=== PATIENT | male | born 1980 | race Caucasian/White ===

== ENCOUNTER 2020-11-30 10:13 | Emergency (ER) | payer BC, SELFPAY ==
--- NOTE | ~2020-11-30 | CT_ITS ---
EXAMINATION: CT abdomen pelvis w con DATE: 11/30/2020 11:09 INDICATION: Left-sided abdominal pain with blood in stools. TECHNIQUE: Computed tomography (CT) of the abdomen and pelvis was performed with 100 mL Omnipaque-350 intravenous contrast. Automated exposure control and iterative reconstruction technique were employe d. The dose-length product was 999.10 mGy-cm. COMPARISON: None FINDINGS: Minimal dependent atelectasis in the bilateral lower lobes. 3-4 mm left lower lobe nodule. Heart size is normal. No pericardial or pleural effusion. Liver, gallbladder, spleen, pancreas, bilateral adren al glands and kidneys are normal. Diffuse fatty infiltration of the wall of the colon, distal ileum a nd otherwise normal appendix which is likely related to body habitus. No periappendiceal inflammatory stranding to suggest acute appendicitis. Small bowel is normal. No obstruction. Bladder is normal. S mall fat-containing left inguinal hernia. No free intraperitoneal gas or fluid. No pathologically enl arged abdominal or pelvic lymphadenopathy. Mild lumbar levocurvature. IMPRESSION: 1. No acute intra-abdominal/pelvic process. 2. Likely benign 3-4 mm left lower lobe nodule. If the patient is low risk for lung cancer, no follow -up is needed. If the patient is high risk (i.e., history of smoking or asbestos or significant radia tion exposure), optional follow-up chest CT could be considered at 12 months. 3. Small fat-containing left inguinal hernia. Reviewed, dictated and finalized at location B. ESTING SUPERVISOR IMPRESSION: 1. No acute intra-abdominal/pelvic process. 2. Likely benign 3-4 mm left lower lobe nodule. If the patient is low risk for lung cancer, no follow-up is needed. If the patient is high risk (i.e., history of smoking or asbestos or significant radiation exposure), optional follow-up chest CT could be considered at 12 months. 3. Small fat-containing left inguinal hernia.
[2020-11-30 10:29] VITALS: BP 163/79; PULSE 58; RESP 18; TEMP 36.1; O2SAT 99
[2020-11-30 10:32] LABS: Basophils Percent Auto 0.5 % (0.2-1.2); Eosinophils Absolute Auto 0.2 K/mm3 (0-0.3); Eosinophils Percent Auto 2.1 % (0-4.4); Hematocrit 44.1 % (42.0-52.0); Hemoglobin 15.2 g/dL (14.0-18.0); Immature Granulocyte Absolute 0.01 K/mm3 (0.00-0.031); Immature Granulocyte Percent A 0.1 % (0-0.5); Lymphocytes Absolute Auto 1.79 K/mm3 (0.9-3.2); Lymphocytes Percent Auto 23.6 % (18.3-44.2); Mean Corpuscular HGB Conc 34.5 g/dl (32-36); Mean Platelet Volume 10.5 fl (7.4-10.4); Monocytes Absolute Auto 0.6 K/mm3 (0.1-0.6); Monocytes Percent Auto 7.8 % (2.6-8.5); Neutrophils Percent Auto 65.9 % (45.5-73.1); Platelet Count Result 196 k/mm3 (150-375); Red Blood Count 5.07 M/mm3 (4.6-6.20); Red Cell Distribution Width 13.1 % (11.5-14.5); White Blood Count 7.6 K/mm3 (4.5-10.0)
--- NOTE | 2020-11-30 10:38 | ED.GIBLEED ---
HPI - GI Bleed General Chief complaint: GI Bleed Stated complaint: abd pain, bloody stools Time Seen by Provider: 11/30/20 10:33 Source: patient Mode of arrival: ambulatory Limitations: no limitations History of Present Illness HPI Narrative: This is a 40-year-old male that presents the emergency department for left-sided abdominal pain since last night. Associated with bright red blood in his stool. Does report history of hemorrhoids. Reports painful bowel movements. Denies fever, nausea, vomiting, or diarrhea. Related Data Allergies Allergy/AdvReac Type Severity Reaction Status Date / Time No Known Allergies Allergy Verified 11/30/20 10:32 Review of Systems Review of Systems: Narrative: CONSTITUTIONAL: Denies fever GASTROINTESTINAL: Reports abdominal pain. Denies nausea, vomiting, or diarrhea. GENITOURINARY: Denies dysuria All systems reviewed & are unremarkable except as noted in HPI and below PMFSH Past Medical History Medical History (Updated 11/30/20 @ 12:59 by Claudia Mcgovern PA-C) External hemorrhoid Sleep apnea Family History Family History Mother Family history of arthritis Asthma Father Family history of diabetes mellitus in first degree relative Sibling Asthma Social History Social History Smoking status: Never smoker Second hand tobacco smoke exposure: No Exam Narrative: Exam Narrative: GENERAL: Well-appearing, well-nourished, and in no acute distress. HEAD: Normocephalic, atraumatic. EYES: EOMI. CHEST: Clear to auscultation. No respiratory distress. No wheezes rales or rhonchi HEART: Regular rate and rhythm. No murmur heard. Normal peripheral pulses. ABDOMEN: Soft, nondistended, normal active bowel sounds. Tender to palpation throughout the left side of the abdomen, without guarding EXTREMITIES: Normal range of motion. No edema. SKIN: Warm, dry, no rash. NEURO: No focal deficits. Alert and oriented x3. PSYCH: Normal mood and affect RECTAL: Several external hemorrhoids present, nonthrombosed, no active bleeding. Hemoccult negative Course Vital Signs Vital signs: Vital Signs Temperature 96.9 F L 11/30/20 10:29 Pulse Rate 58 L 11/30/20 10:29 Respiratory Rate 18 11/30/20 10:29 Blood Pressure 163/79 H 11/30/20 10:29 Pulse Oximetry 99 11/30/20 10:29 Temperature 96.9 F L 11/30/20 10:29 Pulse Rate 58 L 11/30/20 10:29 Respiratory Rate 18 11/30/20 10:29 Blood Pressure 163/79 H 11/30/20 10:29 Pulse Oximetry 99 11/30/20 10:29 MDM - GI Bleed MDM Narrative Medical decision making narrative: Patient presents the emergency department for left-sided abdominal pain, rectal bleeding. He is afebrile and nontoxic-appearing. CBC without acute findings. Metabolic panel without concerning changes. CT scan abdomen and pelvis is without acute intra-abdominal/pelvic process. Does show a likely benign 3 to 4 mm left lower lobe nodule. Patient also has a small fat-containing left inguinal hernia. Patient does have several, nonthrombosed external hemorrhoids. No active bleeding. Was instructed on care of hemorrhoids. Will be given GI for follow-up. Patient is stable and felt appropriate for the outpatient valuation. He was given warnings to return to the ER Lab Data Attestation: I reviewed the patient's lab results. Result diagrams: 11/30/20 10:26 11/30/20 10:26 Labs: Lab Results 11/30/20 11/30/20 11/30/20 Range/Units 10:26 10:26 10:26 WBC 7.6 (4.5-10.0) K/mm3 RBC 5.07 (4.6-6.20) M/mm3 Hgb 15.2 (14.0-18.0) g/dL Hct 44.1 (42.0-52.0) % MCV 87.0 (80-100) fl MCH 30.0 (26-34) pg MCHC 34.5 (32-36) g/dl RDW 13.1 (11.5-14.5) % Plt Count 196 (150-375) k/mm3 MPV 10.5 H (7.4-10.4) fl Immature Gran % (Auto) 0.1 (0-0.5) % Neut % (Auto) 65.9 (45.5-73.1) % Lymph % (Auto) 23.
[2020-11-30 10:41] LABS: Prothrombin Time 13.3 Seconds (11.1-14.7)
[2020-11-30 10:42] LABS: Partial Thromboplastin Time 28.6 SECONDS (22.3-36.8)
[2020-11-30 10:53] LABS: Alanine Aminotransferase 40 U/L (4-50); Alkaline Phosphatase 58 U/L (38-126); Anion Gap 5 mmol/L (8-16); Aspartate Amino Transferase 34 U/L (17-59); Bilirubin,Total 0.6 mg/dL (0.2-1.3); Blood Urea Nitrogen 20 mg/dL (9-20); Calcium 10.3 mg/dL (8.4-10.2); Carbon Dioxide 33 mmol/L (22-30); Chloride 102 mmol/L (98-107); Estimated CRCL calculation 124 ml/min; Estimated Glomerular Filt Rate > 60; Glucose 114 mg/dL (75-110); Potassium 4.1 mmol/L (3.4-5.0); Sodium 140 mmol/L (137-145)
[2020-11-30 13:48] VITALS: BP 132/99; PULSE 72; RESP 14
== END 2020-11-30 13:50 | disposition home or self-care (01) ==
PROVIDERS: Emergency Provider Emergency Medicine; PCP Nurse Practitioner
DX: K64.4 Residual hemorrhoidal skin tags (principal); R91.1 Solitary pulmonary nodule; K40.90 Unilateral inguinal hernia, without obstruction or gangrene, not specified as recurrent; G47.30 Sleep apnea, unspecified
CPT/HCPCS: 36415; 74177; 80053; 85025; 85610; 85730; 86850; 86900; 86901; 96365; 99284; J0131; Q9967

== ENCOUNTER → 2020-12-08 03:19 | Outpatient (CLI) | payer BC, SELFPAY ==
[2020-12-08 18:10] LABS: SARS-CoV-2 RNA PCR Negative
== END ==
PROVIDERS: PCP Nurse Practitioner; Visit Provider Surgery
DX: Z01.812 Encounter for preprocedural laboratory examination (principal); Z20.822 Contact with and (suspected) exposure to COVID-19
CPT/HCPCS: C9803; U0003; U0005

== ENCOUNTER 2020-12-11 01:43 | Day surgery (SDC) | payer BC, SELFPAY ==
[2020-12-07 13:48] VITALS: BMI 34.6
[2020-12-11] VITALS (9 sets, daily range): BP systolic 116–136; BP diastolic 62–86; PULSE 50–81; RESP 11–20; TEMP 35.9–36.6; O2SAT 76–100
--- NOTE | 2020-12-11 08:11 | WPDANESEPPF ---
Anes - Initial Pre Proc Eval Procedure: Operation Date: 12/11/20 10:30 Proposed Procedures p Robotic Assisted Laparoscopic Left Inguinal Hernia Repair With Mesh - Jen Garnica MD Date/Time: 12/11/20 08:11 Surgeon: Jen Garnica MD Pre Op Diagnosis: Left Inguinal Hernia Patient Data Age: 40 Gender: M Height: 1.83 m Weight: 115.7 kg Allergies Allergy/AdvReac Type Severity Reaction Status Date / Time No Known Allergies Allergy Verified 12/11/20 09:26 Home Medications Medication Instructions Recorded Confirmed Type lidocaine HCl-hydrocortison ac 1 applic RECTAL BID 7 Days #98 g 11/30/20 12/11/20 Rx docusate sodium 100 mg capsule 100 mg PO DAILY #30 cap 12/01/20 12/11/20 Rx ibuprofen 200 mg capsule 200 mg PO BID PRN cap 12/01/20 12/11/20 History Patient hx anesthesia problems: none Family hx anesthesia problems: none PMFSH Past Medical History Medical History (Updated 12/11/20 @ 08:11 by Troy Michael MD) External hemorrhoid History of bronchitis Obesity Sleep apnea + cpap Surgical History Surgical History H/O hand surgery surgery on finger Family History Family History Mother Family history of arthritis Asthma Father Family history of diabetes mellitus in first degree relative Sibling Asthma Social History Social History Smoking status: Never smoker Second hand tobacco smoke exposure: No Alcohol intake: current Living arrangements: with family Spiritual care concerns: No Anes - Eval Final PreProcedure Day of Procedure 12/11/20 08:11 Patient weight: obese Heart: regular rate and rhythm Lungs: clear to auscultation and normal air movement Airway: Mallampati scale class II Neurological: alert and oriented Last oral intake: >/= 8 hours ASA classification: II Emergent: no Anesthetic plan: proceed Anesthesia type and monitoring: general ETT Informed Consent: The patient's anesthetic plan and its attendant risks and benefits were discussed with the patient/family/POA. Questions were solicited and answers provided to the satisfaction of the patient/family/POA.
[2020-12-11] MEDS: LACTATED RINGERS 1,000 ML 30 ML IV CONT ×2 (09:38→11:54)
[2020-12-11] MEDS: ACETAMINOPHEN 500 MG TABLET 1000 MG PO (09:40)
[2020-12-11] MEDS: KETOROLAC 15 MG/ML VIAL (*BKC) IV PUSH (09:46)
--- NOTE | 2020-12-11 09:51 | WPDHPUPDATE1 ---
History and Physical Update Update Date/Time: 12/11/20 09:51 History and Physical has been reviewed, including an updated exam of the patient. There are NO changes in the patient's condition. Risks, benefits, and alternatives have been discussed and questions answered. Patient agrees to proceed with procedure.
[2020-12-11] MEDS: ceFAZolin 2 GM/D5W 50 ML 2 GM/50 ML BAG IVPB (10:22)
[2020-12-11] MEDS: BUPIVACAINE/EPINEPHRINE 0.5% 30 ML VIAL INFILTRATE (11:06)
--- NOTE | 2020-12-11 11:06 | SUR.OPER ---
1103 attempted to call spouse nadia,no answer.
--- NOTE | 2020-12-11 11:10 | SUR.OPER ---
talked with spouse nadia,update given.
--- NOTE | 2020-12-11 11:28 | SUR.OPER ---
1110 update given to spouse
--- NOTE | 2020-12-11 12:03 | P.OP_ITS ---
Procedure Note - Detailed Date of procedure: 12/11/20 Pre-op diagnosis: Left Inguinal Hernia Post-op diagnosis: same Procedure performed: robotic assisted left inguinal hernia repair Description of procedure: Patient was brought into the operating room and placed in the supine position. After adequate induction of general anesthesia, the patient was prepped and draped in normal sterile fashion. A time-out was then done to verify the patient's identity, as well as the procedure being performed. Began by making a 8 mm incision in the supraumbilical region, a Veress needle was then placed into the peritoneal cavity. CO2 gas was then insufflated and after adequate pneumoperitoneum was achieved, the Veress needle was removed. I then placed an 8 mm trocar through this incision. I then placed the endoscope through this trocar site and under direct visualization placed 2 further 8 mm ports in the right and left mid abdomen. The [employer] robot was then docked to the 3 trocar sites. I then scrubbed out and went to the robotic console. Upon examining the pelvis, it was noted that the patient had a left inguinal hernia. I began by making a preperitoneal flap approximately 6 cm superior to the defect. This flap was carried medially past the umbilical ligaments in laterally to the transversalis. It then began dissection of my medial compartment taking this down to the pubic tubercle. I then began the lateral dissection taking this down to the transversalis fascia. Once these compartments were achieved, I began dissection around the cord structures. It was noted at this point that the patient had a indirect hernia. Patient also had a large lipoma the cord. Using careful dissection, was able to reduce the lipoma cord as well separate the indirect hernia off the cord structures. Once this was adequately done, I went ahead and placed a 15 x 10 piece of [employer] Technician mesh into the abdominal cavity. The mesh was carefully positioned, centering the center of the mesh over the indirect defect. Once this was done, was very satisfied with our repair. I then closed the peritoneal flap with a running 2.0 V Lock suture. The abdomen was then desufflated, and all ports were removed. All incisions were then closed with the 4.0 monocryl suture. Dermabond was placed on each wound. The patient tolerated the procedure well, was extubated in the operating room postoperatively, and will now be transferred to the [facility] room in stable condition. Implants: 15 x 10 progrip mesh Anesthesia: GETA Surgeon: Jen Garnica MD Estimated blood loss (mL): 5 Drains: No Packing: No Pathology: none sent Complications: No immediate complications Condition: stable Disposition: PACU Findings: indirect LIH
[2020-12-11] MEDS: diphenhydrAMINE HCl INJ 50 MG/ML VIAL 25 MG IV PUSH (12:16)
== END 2020-12-11 14:12 | disposition home or self-care (01) ==
PROVIDERS: PCP Nurse Practitioner; Visit Provider Surgery
PROC: 8E0Y4CZ Robotic Assisted Procedure of Lower Extremity, Percutaneous Endoscopic Approach (ICD-10-PCS; CPT 49650; principal; 2020-12-11 10:30)
DX: K40.90 Unilateral inguinal hernia, without obstruction or gangrene, not specified as recurrent (principal); G47.33 Obstructive sleep apnea (adult) (pediatric); E66.9 Obesity, unspecified; Z68.35 Body mass index [BMI] 35.0-35.9, adult
CPT/HCPCS: 49650; S2900; 36415; 86850; 86900; 86901; A9270; C1781; J0690; J1100; J1200; J1885; J2250; J2405; J2704; J2710; J3010; J7120

== ENCOUNTER → 2021-01-06 01:01 | Outpatient (CLI) | payer BC, SELFPAY ==
[2021-01-06 19:48] LABS: SARS-CoV-2 RNA PCR Negative
== END ==
PROVIDERS: PCP Nurse Practitioner; Visit Provider Surgery
DX: Z01.812 Encounter for preprocedural laboratory examination (principal); Z20.822 Contact with and (suspected) exposure to COVID-19
CPT/HCPCS: C9803; U0003; U0005

== ENCOUNTER 2021-01-10 02:07 | Day surgery (SDC) | payer BC, SELFPAY ==
[2021-01-03 18:20] VITALS: BMI 32.8
[2021-01-10] VITALS (7 sets, daily range): BP systolic 112–134; BP diastolic 68–81; PULSE 50–62; RESP 10–20; TEMP 36.1–36.5; O2SAT 94–99
[2021-01-10] MEDS: LACTATED RINGERS 1,000 ML 30 ML IV CONT (10:45)
--- NOTE | 2021-01-10 10:50 | WPDHPUPDATE1 ---
History and Physical Update Update Date/Time: 01/10/21 10:50 History and Physical has been reviewed, including an updated exam of the patient. There are NO changes in the patient's condition. Risks, benefits, and alternatives have been discussed and questions answered. Patient agrees to proceed with procedure.
[2021-01-10] MEDS: ACETAMINOPHEN 500 MG TABLET 1000 MG PO (10:57)
[2021-01-10] MEDS: KETOROLAC 15 MG/ML VIAL (*BKC) IV PUSH (10:57)
--- NOTE | 2021-01-10 11:05 | WPDANESEPPF ---
Anes - Initial Pre Proc Eval Procedure: Operation Date: 01/10/21 12:00 Proposed Procedures p Rectal Exam Under Anesthesia, Hemorrhoidectomy - Jen Garnica MD Date/Time: 01/10/21 11:05 Surgeon: Jen Garnica MD Pre Op Diagnosis: hemorrhoids Patient Data Age: 40 Gender: M Height: 6 ft Weight: 108.4 kg Last Vital Signs Temp 36.5 C 01/10/21 10:08 Pulse 57 L 01/10/21 10:08 Resp 20 01/10/21 10:08 BP 121/78 01/10/21 10:08 Pulse Ox 99 01/10/21 10:08 Allergies Allergy/AdvReac Type Severity Reaction Status Date / Time No Known Allergies Allergy Verified 01/10/21 10:05 Home Medications Medication Instructions Recorded Confirmed Type lidocaine HCl-hydrocortison ac 1 applic RECTAL BID 7 Days #98 g 11/30/20 01/10/21 Rx docusate sodium [Colace] 100 mg PO BID #20 cap 12/11/20 01/10/21 Rx Patient hx anesthesia problems: none Family hx anesthesia problems: none PMFSH Past Medical History Medical History External hemorrhoid History of bronchitis Obesity Sleep apnea + cpap Surgical History Surgical History H/O hand surgery surgery on finger H/O inguinal hernia repair 12/11/20 robotic assisted left inguinal hernia repair Family History Family History Mother Family history of arthritis Asthma Father Family history of diabetes mellitus in first degree relative Sibling Asthma Social History Social History Smoking status: Never smoker Second hand tobacco smoke exposure: No Alcohol intake: current Substance use: never Living arrangements: with family Gender identity (if verbalized by the patient): Male Sexual Orientation (if Verbalized by the Patient): Straight or Heterosexual Spiritual care concerns: No Anes - Eval Final PreProcedure Day of Procedure 01/10/21 11:05 Patient weight: obese Heart: regular rate and rhythm Lungs: clear to auscultation Airway: Mallampati scale class II Neurological: alert and oriented Last oral intake: >/= 8 hours ASA classification: II Emergent: no Anesthetic plan: proceed Anesthesia type and monitoring: general ETT and standard monitoring Informed Consent: The patient's anesthetic plan and its attendant risks and benefits were discussed with the patient/family/POA. Questions were solicited and answers provided to the satisfaction of the patient/family/POA.
[2021-01-10] MEDS: ceFAZolin 2 GM/D5W 50 ML 2 GM/50 ML BAG IVPB (12:09)
[2021-01-10] MEDS: LIDOCAINE HCL 2% GEL UROJET 10 ML PKG MUCOUS MEM (12:42)
--- NOTE | 2021-01-10 13:01 | PM.PROC ---
Procedure Note - Detailed Date of procedure: 01/10/21 Pre-op diagnosis: hemorrhoids Post-op diagnosis: same Procedure performed: Two column internal hemorrhoidectomy, right anterior and left lateral columns, external hemorrhoidectomy Description of procedure: The patient was taken the operating room placed in the modified lithotomy position. After adequate induction of general anesthesia, the patient prepped and draped in the normal sterile fashion. A time-out was then done to verify the patient's identity, as well as the procedure being performed. A bilateral pudendal block was then done. I began by doing a digital rectal exam. Patient was noted to some external hemorrhoids on exam. I then used the anoscope to further examine anal canal. At this point, it was noted that the patient had hemorrhoids in all 3 columns, most severe in the right anterior and left lateral. At this point, I performed a 2 column internal hemorrhoidectomy. This was done using the LigaSure device. I first excised the right anterior column and this was followed by the left lateral column. Hemostasis was noted in both areas and intact in anoderm was noted. I then excised multiple external hemorrhoids again using the LigaSure device. These were quite large and associated with large skin tags. Hemostasis was noted at these areas. At this point, I placed a piece of Gelfoam coated with lidocaine jelly into the rectal vault. Sterile dressing was then placed. The patient tolerated the procedure and was extubated in the operating room postop. He will be transferred recovery room in stable condition. Implants: none Anesthesia: GETA and local Surgeon: Jen Garnica MD Estimated blood loss (mL): 20 Drains: No Packing: No Pathology: yes Complications: No immediate complications Condition: stable Disposition: PACU Findings: 2 column internal hemorrhoidectomy excision of external hemorrhoids
== END 2021-01-10 14:20 | disposition home or self-care (01) ==
PROVIDERS: PCP Nurse Practitioner; Visit Provider Surgery
PROC: (CPT 46260; principal; 2021-01-10 12:00)
DX: K64.8 Other hemorrhoids (principal); K64.4 Residual hemorrhoidal skin tags; G47.33 Obstructive sleep apnea (adult) (pediatric); E66.9 Obesity, unspecified; Z68.32 Body mass index [BMI] 32.0-32.9, adult
CPT/HCPCS: 46260; 88304; A9270; J0690; J1100; J1885; J2250; J2405; J2704; J3010; J7120

== ENCOUNTER → 2021-03-26 03:32 | Outpatient (CLI) | payer BC, SELFPAY ==
[2021-03-27 15:26] LABS: SARS-CoV-2 RNA PCR Negative (Negative)
== END ==
PROVIDERS: Internal Medicine Critical Care Medicine; PCP Nurse Practitioner; Visit Provider Internal Medicine Gastroenterology
DX: Z01.812 Encounter for preprocedural laboratory examination (principal); Z20.822 Contact with and (suspected) exposure to COVID-19
CPT/HCPCS: C9803; U0003; U0005

== ENCOUNTER 2021-03-28 02:25 | Day surgery (SDC) | payer BC, SELFPAY ==
[2021-03-19 13:12] VITALS: BMI 34.0
[2021-03-28 08:59] VITALS: BP 130/79; PULSE 68; RESP 20; TEMP 36.3; O2SAT 98; BMI 33.5
[2021-03-28] MEDS: LACTATED RINGERS 1,000 ML 150 ML IV CONT (09:16)
--- NOTE | 2021-03-28 09:21 | WPDANESEPPF ---
Anes - Initial Pre Proc Eval Procedure: Operation Date: 03/28/21 09:45 Proposed Procedures p Colonoscopy - Antony Jackson MD Date/Time: 03/28/21 09:21 Surgeon: Antony Jackson MD Pre Op Diagnosis: hematochezia, abdominal pain Patient Data Age: 40 Gender: M Height: 6 ft Weight: 112 kg Last Vital Signs Temp 97.4 F L 03/28/21 08:59 Pulse 68 03/28/21 08:59 Resp 20 03/28/21 08:59 BP 130/79 03/28/21 08:59 Pulse Ox 98 03/28/21 08:59 Allergies Allergy/AdvReac Type Severity Reaction Status Date / Time No Known Allergies Allergy Verified 03/28/21 08:58 Home Medications Medication Instructions Recorded Confirmed Type No Home Medications 03/19/21 03/19/21 History Patient hx anesthesia problems: none Family hx anesthesia problems: none PMFSH Past Medical History Medical History (Updated 03/16/21 @ 16:39 by Lina Fountain NP) External hemorrhoid History of bronchitis Inguinal hernia without obstruction or gangrene Obesity Sleep apnea + cpap Surgical History Surgical History H/O hand surgery surgery on finger H/O inguinal hernia repair 12/11/20 robotic assisted left inguinal hernia repair History of hemorrhoidectomy 01/10/21 Family History Family History Mother Family history of arthritis Asthma Father Family history of diabetes mellitus in first degree relative Sibling Asthma Social History Social History Smoking status: Never smoker Second hand tobacco smoke exposure: No Alcohol intake: never Substance use: never Substance use type: does not use Living arrangements: with family Gender identity (if verbalized by the patient): Male Spiritual care concerns: No Anes - Eval Final PreProcedure Day of Procedure 03/28/21 09:21 Patient weight: obese Heart: regular rate and rhythm Lungs: clear to auscultation Airway: Mallampati scale class II Last oral intake: >/= 8 hours ASA classification: II Emergent: no Anesthetic plan: proceed Anesthesia type and monitoring: general GIVS and standard monitoring Informed Consent: The patient's anesthetic plan and its attendant risks and benefits were discussed with the patient/family/POA. Questions were solicited and answers provided to the satisfaction of the patient/family/POA.
--- NOTE | 2021-03-28 09:25 | PM.HPGS ---
History of Present Illness History of Present Illness Consent: Risks, benefits, and alternatives have been discussed and questions answered. Patient agrees to proceed with procedure. Chief complaint: hematochezia, abdominal pain Narrative: Martir Jha is a 40 year old male with hematochezia, had hemorrhoid surgery 2 months ago and improved but never had a colonoscopy Review of Systems Constitutional: Constitutional: Denies headache(s) and Denies weakness Eyes: Eyes: Denies blurry vision ENT: Reports Normal hearing present, Denies headache(s) and Denies neck pain Cardiovascular: Cardiovascular: Denies chest pain and Denies dyspnea Respiratory: Respiratory: Denies dyspnea Gastrointestinal: Gastrointestinal: Reports no additional gastrointestinal complaints Genitourinary: Genitourinary: Denies dysuria Musculoskeletal: Musculoskeletal: Denies neck pain Integumentary/Breasts: Skin/Breast: Denies dry skin Neurologic: Reports Normal hearing present, Denies headache(s) and Denies weakness Psychiatric: Psychiatric: Denies anxiety Endocrine: Endocrine: Denies change in body appearance Hematologic/Lymphatic: Hematologic/Lymphatic: Denies easy bleeding Allergic/Immunologic: Allergic/Immunologic: Denies urticaria PMFSH Past Medical History Medical History (Updated 03/16/21 @ 16:39 by Lina Fountain NP) External hemorrhoid History of bronchitis Inguinal hernia without obstruction or gangrene Obesity Sleep apnea + cpap Surgical History Surgical History H/O hand surgery surgery on finger H/O inguinal hernia repair 12/11/20 robotic assisted left inguinal hernia repair History of hemorrhoidectomy 01/10/21 Family History Family History Mother Family history of arthritis Asthma Father Family history of diabetes mellitus in first degree relative Sibling Asthma Social History Social History Smoking status: Never smoker Second hand tobacco smoke exposure: No Alcohol intake: never Substance use: never Substance use type: does not use Living arrangements: with family Gender identity (if verbalized by the patient): Male Spiritual care concerns: No Meds Home Medications and Allergies Home Medications Medication Instructions Recorded Confirmed Type No Home Medications 03/19/21 03/19/21 History Allergies Allergy/AdvReac Type Severity Reaction Status Date / Time No Known Allergies Allergy Verified 03/28/21 08:58 Vital Signs Vital Signs - 24 hr 03/28/21 08:59 Temperature 97.4 F L Pulse Rate 68 Respiratory Rate 20 Blood Pressure 130/79 Pulse Oximetry 98 Exam Const: General: comfortable and no acute distress HENMT: General nose exam: Normal nares present Eyes: General: appearance normal, both eyes and all related structures Neck: Neck: no JVD Resp: Auscultation: clear to auscultation bilaterally Cardio: Rate: regular rate Rhythm: regular rhythm GI: Inspection: non-distended GI Palp: Yes Soft to palpation Skin: General skin exam: normal color Neuro: General: gait normal Speech: normal speech Extrem: General: normal to inspection Psych: Mental Status: mental status grossly normal Assessment and Plan Assessment and plan (1) Hematochezia: Code(s): K92.1 - Melena Status: Resolved Assessment and Plan: colonoscopy, most likely perianal source but need to rule out other causes (2) Hemorrhoids: Code(s): K64.9 - Unspecified hemorrhoids Status: Acute
[2021-03-28 09:43] VITALS: BP 109/64; PULSE 70; RESP 16; O2SAT 95
[2021-03-28 09:53] VITALS: BP 109/64; PULSE 60; RESP 16; O2SAT 94
[2021-03-28 10:03] VITALS: BP 112/80; PULSE 67; RESP 22; O2SAT 96
== END 2021-03-28 10:30 | disposition home or self-care (01) ==
PROVIDERS: PCP Nurse Practitioner; Visit Provider Internal Medicine Gastroenterology
PROC: 0DJD8ZZ Inspection of Lower Intestinal Tract, Via Natural or Artificial Opening Endoscopic (ICD-10-PCS; CPT 45378; principal; 2021-03-28 09:45)
DX: K92.1 Melena (principal); K40.90 Unilateral inguinal hernia, without obstruction or gangrene, not specified as recurrent; K64.8 Other hemorrhoids; E66.9 Obesity, unspecified; G47.30 Sleep apnea, unspecified
CPT/HCPCS: 45378; J2001; J2704; J7120

== ENCOUNTER 2021-12-04 08:54 | Outpatient (CLI) | payer BC, SELFPAY ==
--- NOTE | ~2021-12-04 | CT_ITS ---
EXAMINATION:CT diagnostic chest wo con DATE: 12/04/2021 09:15 INDICATION: Solitary pulmonary nodule. TECHNIQUE: Computed tomography (CT) of the chest was performed without intravenous contrast. Automate d exposure control and iterative reconstruction technique were employed. The dose-length product (DLP ) was 253.34 mGy-cm. COMPARISON: CT abdomen and pelvis 11/30/2020 FINDINGS: The lungs demonstrate mild atelectasis. There is a stable 4 mm nodule in left lower lobe. N o pleural effusion. The heart size is normal. No pericardial effusion. There is bilateral gynecomasti a. There is mild thoracic spondylosis. IMPRESSION: 1. Stable 4 mm left lower lobe pulmonary nodule, likely benign. Reviewed, dictated and finalized at location A. H BLEACHING RANGE TENDER
== END 2021-12-04 08:55 | disposition home or self-care (01) ==
PROVIDERS: PCP Nurse Practitioner; Visit Provider Nurse Practitioner
DX: R91.1 Solitary pulmonary nodule (principal)
CPT/HCPCS: 71250

== ENCOUNTER 2022-12-24 19:54 | Outpatient (NON) | payer BC, SELFPAY | END 2022-12-24 19:55 | disposition home or self-care (01) | LOC: ANHLAB 19:56 | PROVIDERS: PCP Family Medicine; Visit Provider Nurse Practitioner | DX: J02.9 Acute pharyngitis, unspecified (principal) | CPT/HCPCS: 87070; 87077 ==

== ENCOUNTER 2023-01-16 14:20 | Outpatient (CLI) | payer BC, SELFPAY ==
[2023-01-16 20:52] LABS: Kit Draw Collected
== END 2023-01-16 14:21 | disposition home or self-care (01) ==
LOC: ANHGOSHLAB 14:22
PROVIDERS: PCP Family Medicine; Visit Provider Nurse Practitioner
DX: E78.5 Hyperlipidemia, unspecified (principal); Z12.5 Encounter for screening for malignant neoplasm of prostate
CPT/HCPCS: 36415

== ENCOUNTER → 2023-02-25 12:44 | Outpatient (CLI) | payer BC, SELFPAY ==
--- NOTE | ~2023-02-25 | XR_ITS ---
EXAMINATION: XR chest 2V Exam Date/Time: 02/25/2023 12:48 CDT HISTORY: follow up for Solitary pulmonary nodule left side Comparison: 09/04/2018; CT chest 12/04/2021. RESULT: Lines, tubes, and devices: None. Lungs and pleura: Clear. Cardiomediastinal silhouette: Stable. Other: No acute osseous or upper abdominal finding. IMPRESSION: No acute cardiopulmonary process. The nodule detected by prior CT is not visible radiographically, bu t was described as likely benign previously as it demonstrated stability over one year. Based on Flei schner recommendations no additional imaging is recommended. Reviewed, dictated and finalized at location K. IMPRESSION: No acute cardiopulmonary process. The nodule detected by prior CT is not visibl e radiographically, but was described as likely benign previously as it demonst rated stability over one year. Based on Fleischner recommendations no additiona l imaging is recommended.
== END ==
PROVIDERS: PCP Nurse Practitioner; Visit Provider Nurse Practitioner
DX: R91.1 Solitary pulmonary nodule (principal)
CPT/HCPCS: 71046

== ENCOUNTER 2023-08-11 11:42 | Outpatient (CLI) | payer BC, SELFPAY ==
[2023-08-11 12:39] LABS: Strep Group A RT-PCR NOT DETECTED (Negative)
== END 2023-08-11 11:43 | disposition home or self-care (01) ==
LOC: ANHLAB 11:43
PROVIDERS: PCP Family Medicine; Visit Provider Family Medicine
DX: J02.9 Acute pharyngitis, unspecified (principal)
CPT/HCPCS: 87651

== ENCOUNTER 2023-12-10 09:13 | Outpatient (CLI) | payer BC, SELFPAY ==
--- NOTE | ~2023-12-10 | CT_ITS ---
CT Scan of the Chest without Contrast: Clinical Indication: Chest pain Technique: Contiguous sections were acquired throughout the chest without intravenous contrast. Dose reduction technique was used on this scan by utilizing automated exposure control and iterative recon struction technique. The dose-length product (DLP) was 641.05 mGy-cm. COMPARISON: 12/04/2021 Findings: There is no evidence of any significant mediastinal, hilar or axillary lymphadenopathy. The mediastin al soft tissues appear normal. There is no evidence of pleural or pericardial effusion. 3 mm right lower lobe pulmonary nodule noted. 4 mm left lower lobe pulmonary nodule noted. These nodu les are stable from prior exam. Images through the upper abdomen reveal no abnormalities. Impression: No acute abnormality seen. Stable subcentimeter pulmonary nodules, as noted above. Reviewed, dictated and finalized at [facility]. MILL SUPERVISOR Impression: No acute abnormality seen. Stable subcentimeter pulmonary nodules, as noted above.
== END 2023-12-10 09:14 ==
LOC: GOSHIMG 09:14
PROVIDERS: PCP Family Medicine; Visit Provider Family Medicine
DX: R07.89 Other chest pain (principal); S29.011A Strain of muscle and tendon of front wall of thorax, initial encounter; R91.1 Solitary pulmonary nodule; X58.XXXA Exposure to other specified factors, initial encounter
CPT/HCPCS: 71250

== ENCOUNTER 2025-03-17 10:20 | Outpatient (CLI) | payer BC, SELFPAY ==
--- OUTSIDE RECORDS SUMMARY | 2025-03-17 10:32 | XMS_ITS | Clinical Summary ---
Author Organization [facility] Address [address] [place] [address] Care Team Providers Care Mold Press Operator Name Role Phone Unavailable Primary Care Provider Unavailabl e Source Comments [facility],non-owned Affiliates and Associated Physician Practices is amultiple site organization consisting of ambulatory clinics and hospital sitesin [place], [place], [place] and [place]. This disclosure is being madepursuant to the Care Everywhere program and may not contain all information available regarding this patient. Last updated 18.[facility] Immunizations Immunization Administration Dates Next Due INFLUENZA VACCINE, QUADR. (F LUZONE; FLULAVAL; FLUARIX; AFLURIA QUADRIVALENT; 6MO+), 0.5 ML (IIV4) 08/10/2020 Social History Tobacco Use Types Packs/Day Years Used Date Smoking Tobacco: Never Assessed Sex and Gender Information Value Date Recorded Sex Assigned at Not on file Legal Sex Male 11:44 AM CDT Gender Identity Not on file Sexual Orientation Not on file Last Filed Vital Signs Vital Sign Reading Time Taken Comments Blood Pressure - - Pulse - - Temperature 36.4 C (97.5 F) 08/10/2020 9:31 AM CDT Respiratory Rate - - Oxygen Saturation - - Inhaled Oxygen Concentration - - Weight - - Height - - Body Mass Index - - Plan of Treatment Health Maintenance Due Date Last Done Comments LIPID TESTING 1980 HIV SCREENING 1995 HEPATITIS C SCREENING 08/21/1998 DTAP/TDAP/TD VACCINES (1 - Tdap) 1999 HEPATITIS B VACCINE (1 of 3 - 19+ 3-dose series) 1999 COVID-19 VACCINE (2023-2 5 season) 2024 DEPRESSION SCREENING 11/03/2024 INFLUENZA VACCINE (Season Ended) 2025 08/10/20 20 ZOSTER VACCINE (1 of 2) 2030 HIB VACCINE Aged Out No longer eligi ble based on patient's age to complete this topic HPV VACCINE Aged Out No longer eligi ble based on patient's age to complete this topic MENINGOCOCCAL (Group B) VACC INE SHARED DECISION-MAKING Aged Out No longer eligibl e based on patient's age to complete this topic MENINGOCOCCAL GROUPS A/C/Y/W VACCINE Aged Out No longer eligible b ased on patient's age to complete this topic PNEUMOCOCCAL VACCINE Aged Out No long er eligible based on patient's age to complete this topic Insurance ANTHEM ANTHEM
--- NOTE | 2025-04-15 11:34 | WPDSLEEPSTUD ---
Sleep Study Date of Study: 03/17/25 Ordering Provider: Dallas Werner MD Interpreting Physician: Carline John MD Sleep Study Type: Split Polysomnogram Height: 1.83 m Weight: 120.202 kg Body Mass Index: 35.9 Neck Circumference (inches): 19 Allen: 12 Reason for Sleep Study Hypersomnolence; Known obstructive sleep apnea 2012, 09/20/2023 split night study with AHI 64.2, lowest desaturation 83%, optimal pressure CPAP 7 cm; BMI was 33. Sleep History Martir Jha is a 44-year-old man with a diagnosis of obstructive sleep apnea in 2014. He is currently using his CPAP daily. There is a family history of sleep issues, is mother uses CPAP. He currently has excessive daytime sleepiness and he wakes up choking at night. He always awakens from sleep feeling short of breath. He constantly wakes at night with heartburn, belching or coughing.??He constantly snores, and it is always loud enough that others complain. He constantly has trouble sleeping when he has a cold. He constantly wakes up gasping for breath during the night. He constantly has breathing problems at night. He rarely sweats excessively at night. He constantly notices his heart pounding or beating irregularly during the night. He occasionally falls asleep during the day. He occasionally falls asleep involuntarily, rarely falls asleep while driving. He never experiences loss of muscle tone with strong emotion. He occasionally has daytime difficulty at work due to excessive sleepiness. He never feels paralyzed on waking or falling asleep. He occasionally experiences vivid dreams upon waking or falling asleep. He occasionally feels afraid of going to sleep. He rarely has nightmares. He occasionally recalls his dreams. He occasionally has thoughts racing through his mind. He never feels sad or depressed. He occasionally feels anxiety. He never notices parts of his body jerk. He never kicks during the night. He rarely feels crawling or aching feelings in his legs. He occasionally feels leg pain at night. He rarely has morning jaw pain, rarely grinds his teeth at night. He occasionally feels bothered by pain during the day, occasionally awakened by pain during the night. He frequently wakes up feeling stiff in the morning, and he frequently wakes feeling sore or achy. He frequently awakens with pain in his neck, spine, or joints. Normal bedtime is 10:00 p.m., falling asleep within 15 minute, waking between 4 and 6 times at night to get a drink of water and go to the bathroom, returning to sleep within 5 minutes. Wake time is 615. He typically gets on weekends, bedtime is 11:30 p.m. and wake time is 7:00 a.m.. He estimates getting 6 hours of sleep most nights. His sleep is sometimes interrupted by noise, bed partner, dogs and kids. He is usually drowsy after waking and feels better in the afternoon compared to other times of day. He does not generally nap. Habits:??Tobacco: never smoker Caffeine: 1 per day Alcohol: none Recreational substances: none [facility] Past Medical History Medical History (Updated 04/15/25 @ 12:32 by Carline John MD) Obstructive sleep apnea Intercostal muscle strain HTN (hypertension) History of COVID-19 (~02/2022) Hyperlipidemia Obesity Inguinal hernia without obstruction or gangrene Sleep apnea + cpap Surgical History Surgical History History of hemorrhoidectomy 01/10/21 H/O inguinal hernia repair 12/11/20 robotic assisted left inguinal hernia repair H/O hand surgery surgery on finger Family History Family History Mother Family history of arthritis Asthma Father Family history of diabetes mellitus in first degree relative Sibling Asthma Social History Social History Smoking status: Never smoker Second hand tobacco smoke exposure: No Alcohol intake: never Substance use: never Substance use type: does not use Lack of Transportation: No Lack of Food: Never True Current Housing: I Have Housing Concerned About Future Housing: No Difficulty Paying Gas/Electric Bills: No Difficulty Paying for Meds: No Currently Unemployed: No Education: Bachelor's Degree Difficulty w/ Childcare or Family Care: No Living arrangements: with family Gender identity (if verbalized by the patient): Male Sexual Orientation (if Verbalized by the Patient): Straight or Heterosexual Spiritual care concerns: No Medications Home Medications ?Medication ?Instructions ?Recorded ?Confirmed ?Type losartan 100 mg tablet 100 mg PO DAILY #90 tabs 04/13/25 Rx simvastatin 10 mg tablet 10 mg PO DAILY #90 tabs 04/13/25 Rx Sleep Procedure A full night polysomnogram using the [employer] multi-channel system recorded the standard physiologic parameters including EEG, EOG, submentalis EMG, anterior tibialis EMG, EKG, body position, nasal and oral airflow using nasal pressure sensor and thermistor. Respiratory parameters of chest and abdominal movements were recorded with Respiratory Inductance Plethysmography belts. Oxygen saturation was recorded by pulse oximetry. Video monitoring was also performed. Sleep stages, periodic limb movements, and EEG arousals were scored in 30 second epochs according to the criteria of the AASM Scoring Manual. The Apnea-Hypopnea Index was calculated using [facility] guidelines for definition of hypopnea with 4% O2 desaturations while scoring respiratory events. He did not take a sleep aid at the start of testing. He met criteria for a split night study with a baseline apnea-hypopnea index of 95.4 and desaturation to 77%. He used a large ResMed AirTouch F20 fullface mask with heated humidity, initial CPAP pressure was 5 cm, titrated to 6 cm, 8 cm, 10 cm, final pressure was CPAP 11 cm. At this pressure, he spent 188 minutes in bed, 5 minutes awake, 136 minutes in non-REM and 47 minutes in REM. Sleep efficiency was 97.3%. The apnea-hypopnea index was 0.3. The lowest saturation was 90%. Supine REM occurred. This is the optimal pressure. Sleep Architecture During the diagnostic portion of the study, the total recording time was 155.9 minutes. The total sleep time was 134.0 minutes. Sleep latency was 3.9 minutes. REM latency was - minutes. Sleep Efficiency was 86.0%. The patient had 9 awakenings for an awakening index of 4.0. Wake after sleep onset time was 18.0 minutes. The patient spent 7.0 minutes, 5.2% of total sleep time in Stage N1. The patient spent 127.0 minutes, 94.8% in Stage N2. The patient spent no time in Stage N3 or Stage REM sleep. At 12:47:12 AM the patient was placed on PAP treatment using a large ResMed AirTouch F20 fullface mask wit hand heated humidity, was titrated from 5 cm to 11 cm. During the treatment portion of the study, the total recording time was 312.2 minutes. The total sleep time was 306.0 minutes. Sleep latency was 1.0 minutes. REM latency was 2.5 minutes. Sleep Efficiency was 98.0%. Wake after Sleep Onset time was 5.5 minutes. The patient spent 6.0 minutes, 2.0% of total sleep time in Stage N1. The patient spent 160.0 minutes, 52.3% in Stage N2. The patient spent 59.5 minutes, 19.4% in Stage N3. The patient spent 80.5 minutes, 26.3% in Stage REM. Respiratory Analysis During the diagnostic portion of the study, the patient had 60 hypopneas, 152 obstructive apneas, 1 mixed apnea, and no central apneas for an overall Apnea Hypopnea Index of 95.4 events per hour. There was no REM on the baseline. The NREM Apnea Hypopnea Index was 95.4. The patient had a Central Apnea Hypopnea Index of 0. There were no Respiratory Effort Related Arousals. The Respiratory Disturbance Index is 98.1 events per hour. There was no evidence of Aldair-Kirby Respirations. During the treatment portion of the study, the patient had 33 hypopneas, no obstructive apneas, 1 mixed apnea, and no central apneas for an overall Apnea Hypopnea Index of 6.7 events per hour. The REM Apnea Hypopnea Index was 1.5. The NREM Apnea Hypopnea Index was 8.5. The patient had a Central Apnea Hypopnea Index of o. There were no Respiratory Effort Related Arousals. The Respiratory Disturbance Index is 7.3 events per hour. There was no evidence of Aldair-Kirby Respirations. Arousals During the diagnostic portion of the study, there were a total of 166 arousals for an arousal index of 74.3. There were 127 respiratory arousals for an index of 56.9. There were 10 periodic limb movement arousals for an index of 4.5. There were 5 isolated limb movement arousals for an index of 2.2. There were 32 spontaneous arousals for an index of 14.3. During the treatment portion of the study, there were a total of 72 arousals for an index of 14.1. There were 13 respiratory arousals for an index of 2.5. There were - periodic limb movement arousals for an index of -. There were 17 isolated limb movement arousals for an index of 3.3. There were 42 spontaneous arousals for an index of 8.2. Periodic Limb Movements During the diagnostic portion of the study, the patient had 6 isolated limb movements with an index of 2.7. The patient had 14 periodic limb movements with an index of 6.3. The patient had a total of 20 limb movements with a total limb movement index of 9.0. During the treatment portion of the study, the patient had 26 isolated limb movements with an index of 5.1. The patient had no periodic limb movements. The patient had a total of 26 limb movements with a total limb movement index of 5.1. Oximetry Data During the diagnostic portion of the study, the patient had an average oxygen saturation of 94% in wake with a minimum oxygen saturation of 78% and a maximum oxygen saturation of 100%. The patient had an average oxygen saturation of 90.5% in sleep with a minimum oxygen saturation of 77% and a maximum oxygen saturation of 98.0%. The patient had 209 oxygen desaturations resulting in an Oxygen Desaturation Index of 93.6. The patient spent 40.2 minutes, 26.6% of total sleep time with an oxygen saturation less than 88%. During the treatment portion of the study, the patient had an average oxygen saturation of 94.5% in wake with a minimum oxygen saturation of 91% and a maximum oxygen saturation of 98%. The patient had an average oxygen saturation of 92.4% in sleep with a minimum oxygen saturation of 79% and a maximum oxygen saturation of 98%. The patient had 43 oxygen desaturations resulting in an Oxygen Desaturation Index of 8.4. The patient spent 14.2 minutes, 4.6% of total sleep time with an oxygen saturation less than 88%. Snoring Profile Snoring was moderate, this was eliminated during the titration. Cardiac Profile During the diagnostic portion of the study, the EKG showed normal sinus rhythm, average pulse rate was 63.8 bpm, minimum pulse rate was 48 bpm, maximum pulse rate was 93.0 bpm. No arrhythmias noted. During the treatment portion of the study, the EKG showed normal sinus rhythm, average pulse rate was 62.9 bpm, minimum pulse rate was 53 bpm, and the maximum pulse rate was 88 bpm. No arrhythmias noted. EEG Profile EEG was unremarkable, no evidence of seizures. Assessment and Plan Assessment and Plan (1) Obstructive sleep apnea: Code(s): G47.33 - Obstructive sleep apnea (adult) (pediatric) Status: Acute Assessment and Plan: This split night sleep study on 03/17/2025 shows extremely severe obstructive sleep apnea, the baseline apnea-hypopnea index was 95.4 with desaturation to 77%, lack of REM on the baseline, successfully treated using CPAP 11 cm and a large ResMed AirTouch F20 fullface mask with heated humidity. At CPAP 11 cm, he spent 188 minutes in bed, 5 minutes awake, 136 minutes in non-REM and 47 minutes in REM. Sleep efficiency was 97.3%. The residual apnea-hypopnea index was 0.3. The lowest saturation was 90%. Supine REM occurred. This is the optimal pressure. The patient should be prescribed this ResMed equipment as well as tubing, filters and reservoir. This should be used with all episodes of sleep. Compliance should be reviewed within 31-90 days of starting therapy for usage greater than 4 hours per night greater than 70% of the nights. The patient should be asked about symptoms such as excessive daytime sleepiness, quality of sleep, decreased nocturia, increased mental functioning such as memory, mood, and concentration. BMI is 35.9. Weight management is advised. Clinical data suggests that weight loss of 10% can reduce the severity of respiratory events and snoring and improve AHI by as much as 25%. Data The data obtained during this sleep study is adequate for interpretation. Certification This sleep study has been reviewed by a board certified sleep medicine physician.
[2025-04-15 11:37] VITALS: BMI 35.9
== END 2025-03-18 06:42 | disposition home or self-care (01) ==
PROVIDERS: PCP Family Medicine; Visit Provider Family Medicine
DX: G47.33 Obstructive sleep apnea (adult) (pediatric) (principal)
CPT/HCPCS: 95811